=== PATIENT | female | born 2000 | race Caucasian/White ===

== ENCOUNTER 2020-12-08 23:26 | Emergency (ER) | payer BC ==
[2020-12-08 23:34] VITALS: BP 139/93; PULSE 104; TEMP 99.4; BMI 19.8
[2020-12-08] MEDS ORDERED: DEXAMETHASONE SOD PHOSPHATE 10 MG/1 ML VIAL IVPUSH ONE (23:40)
[2020-12-08] MEDS ORDERED: DEXAMETHASONE SOD PHOSPHATE 10 MG/1 ML VIAL ONE (23:45)
== END 2020-12-09 01:59 | disposition home or self-care (01) ==
LOC: FER 23:26
PROC: 3E033NZ Introduction of Analgesics, Hypnotics, Sedatives into Peripheral Vein, Percutaneous Approach (ICD-10-PCS; principal; 2020-12-08)
PROC: 3E033GC Introduction of Other Therapeutic Substance into Peripheral Vein, Percutaneous Approach (ICD-10-PCS; 2020-12-08)
DX: T78.40XA Allergy, unspecified, initial encounter (principal)
CPT/HCPCS: 99283-25; J1100

== ENCOUNTER 2021-02-20 19:31 | Emergency (ER) | payer BC ==
[2021-02-20] MEDS ORDERED: SODIUM CHLORIDE 1,000 ML IV ONE (19:35)
[2021-02-20] MEDS ORDERED: ONDANSETRON 4 MG/2 ML VIAL IVPB ONE (19:35)
[2021-02-20 19:46] VITALS: BP 110/87; PULSE 76; TEMP 98.1; BMI 19.4
[2021-02-20] MEDS ORDERED: ONDANSETRON 4 MG/2 ML VIAL ONE (19:47)
[2021-02-20 20:12] LABS: ALBUMIN 5.1 g/dl (3.4-5.0); BILIRUBIN,TOTAL 0.6 mg/dl (0.2-1); CREATININE 0.6 mg/dl (0.55-1.3); TOT PROT 8.3 g/dl (6.4-8.2)
[2021-02-20 21:10] LABS: HEMATOCRIT 39.5 % (32.4-45.2); HEMOGLOBIN 13.4 GM/dL (10.7-15.3); MEAN CELL VOLUME 85.1 fl (80-96); MEAN PLT VOLUME 7.8 fl (7.5-11.1); PLATELET COUNT 345 10^3/uL (134-434); RBC 4.64 M/mm3 (3.60-5.2); RDW 13.2 % (11.6-15.6); WHITE BLOOD COUNT 21.2 K/mm3 (4.0-10.0)
[2021-02-20 22:14] LABS: ANISOCYTOSIS 2+; MACROCYTOSIS 0; PLATELET ESTIMATE DECREASED
[2021-02-20 23:18] LABS: BASO % 0.1 % (0-2.0); HEMATOCRIT 34.2 % (32.4-45.2); HEMOGLOBIN 11.6 GM/dL (10.7-15.3); LYMPH % 8.5 % (8-40); MCH 29.2 pg (25.7-33.7); MEAN CELL VOLUME 85.9 fl (80-96); MEAN PLT VOLUME 7.6 fl (7.5-11.1); MONO % 2.5 % (3.8-10.2); NEUT % 88.9 % (42.8-82.8); PLATELET COUNT 276 10^3/uL (134-434); RBC 3.98 M/mm3 (3.60-5.2); WHITE BLOOD COUNT 18.5 K/mm3 (4.0-10.0)
== END 2021-02-20 23:29 | disposition home or self-care (01) ==
LOC: FER 19:31
PROC: 3E033GC Introduction of Other Therapeutic Substance into Peripheral Vein, Percutaneous Approach (ICD-10-PCS; principal; 2021-02-20)
DX: R11.2 Nausea with vomiting, unspecified (principal)
CPT/HCPCS: 36415; 80053; 85025; 99284-25

== ENCOUNTER 2021-04-12 06:41 | Emergency (ER) | payer BC ==
[2021-04-12 06:53] VITALS: TEMP 99.6; BMI 18.8
[2021-04-12] MEDS ORDERED: SODIUM CHLORIDE 0.9% 500 ML INFUS.BAG IV ONE (07:15)
[2021-04-12] MEDS ORDERED: ALPRAZolam 1 MG TABLET PO PRN (07:15)
[2021-04-12] MEDS ORDERED: ALPRAZolam 0.25 MG TABLET ONE (07:38)
[2021-04-12 08:37] LABS: BILIRUBIN,TOTAL 0.5 mg/dl (0.2-1); CALCIUM 8.7 mg/dl (8.5-10); CREATININE 0.7 mg/dl (0.55-1.3); MAGNESIUM 1.8 mg/dL (1.8-2.4); PHOSPHOROUS 3.9 mg/dl (2.5-4.9); TOT PROT 6.9 g/dl (6.4-8.2)
[2021-04-12] MEDS ORDERED: POTASSIUM CHLORIDE TABS 20 MEQ TABLET.ER (FP) PO ONE ×2 (08:46→08:57)
[2021-04-12 09:45] VITALS: BP 110/78; PULSE 83
[2021-04-12 10:26] LABS: BASO % 0.5 % (0-2.0); EOS % 4.6 % (0-4.5); HEMATOCRIT 37.1 % (32.4-45.2); HEMOGLOBIN 12.4 GM/dL (10.7-15.3); LYMPH % 22.3 % (8-40); MCH 28.9 pg (25.7-33.7); MCHC 33.4 g/dl (32.0-36.0); MEAN CELL VOLUME 86.3 fl (80-96); MEAN PLT VOLUME 8.1 fl (7.5-11.1); NEUT % 65.6 % (42.8-82.8); PLATELET COUNT 299 10^3/uL (134-434); RDW 13.8 % (11.6-15.6); WHITE BLOOD COUNT 10.9 K/mm3 (4.0-10.0)
== END 2021-04-12 10:23 | disposition home or self-care (01) ==
LOC: FER 06:41
DX: F41.9 Anxiety disorder, unspecified (principal)
CPT/HCPCS: 36415; 80053; 83735; 84100; 84443; 85025; 93005; 99284-25

== ENCOUNTER 2022-11-22 01:33 | Emergency (ER) | payer BC ==
[2022-11-22] MEDS ORDERED: FAMOTIDINE 20 MG/50 ML IVPB 20 MG/50 ML MG IVPB ONE ×2 (01:38→01:46)
[2022-11-22] MEDS ORDERED: methylPREDNISolone NA SUCC 125 MG/2 ML VIAL IVPB ONE (01:38)
[2022-11-22 01:39] VITALS: TEMP 97.8; BMI 21.3
[2022-11-22] MEDS ORDERED: methylPREDNISolone NA SUCC 125 MG/2 ML VIAL ONE (01:46)
[2022-11-22 05:22] VITALS: BP 114/74; PULSE 94; RESP 16
== END 2022-11-22 05:35 | disposition home or self-care (01) ==
LOC: FER 01:33
PROC: 3E033GC Introduction of Other Therapeutic Substance into Peripheral Vein, Percutaneous Approach (ICD-10-PCS; principal; 2022-11-22)
PROC: 3E033GC Introduction of Other Therapeutic Substance into Peripheral Vein, Percutaneous Approach (ICD-10-PCS; 2022-11-22)
PROC: 3E033GC Introduction of Other Therapeutic Substance into Peripheral Vein, Percutaneous Approach (ICD-10-PCS; 2022-11-22)
DX: L29.9 Pruritus, unspecified (principal); L50.0 Allergic urticaria; R09.89 Other specified symptoms and signs involving the circulatory and respiratory systems; T78.40XA Allergy, unspecified, initial encounter
CPT/HCPCS: 99284-25

== ENCOUNTER 2023-01-15 22:14 | Emergency (ER) | payer BC ==
[2023-01-15] MEDS ORDERED: ONDANSETRON 4 MG/2 ML VIAL IVPB ONE (22:23)
[2023-01-15] MEDS ORDERED: SODIUM CHLORIDE 1,000 ML IV ONE (22:23)
[2023-01-15 22:26] VITALS: BP 114/74; PULSE 85; RESP 16; TEMP 98; BMI 20.2
[2023-01-15] MEDS ORDERED: FAMOTIDINE 20 MG/50 ML IVPB 20 MG/50 ML MG IVPB ONE ×2 (22:27)
[2023-01-15] MEDS ORDERED: ONDANSETRON 4 MG/2 ML VIAL ONE (22:27)
[2023-01-15 22:55] LABS: HEMATOCRIT 41.8 % (32.4-45.2); MCH 29.2 pg (25.7-33.7); MCHC 33.4 g/dl (32.0-36.0); MEAN CELL VOLUME 87.4 fl (80-96); MEAN PLT VOLUME 8.6 fl (7.5-11.1); PLATELET COUNT 271.7 10^3/uL (134-434); RBC 4.78 10^6/uL (3.60-5.2); RDW 14.1 % (11.6-15.6); WHITE BLOOD COUNT 21.1 10^3/uL (4.0-10.8)
[2023-01-15 23:30] LABS: HCG,QUALITATIVE URINE Negative
[2023-01-15 23:45] LABS: POTASSIUM 3.9 mmol/L (3.5-5.1)
[2023-01-15 23:47] LABS: EPITHELIAL CELLS 0-5 /hpf
[2023-01-15 23:47] LABS: CALCIUM 9.7 mg/dL (8.5-10.1)
[2023-01-15 23:48] LABS: ALBUMIN 4.5 g/dl (3.4-5.0); BLOOD UREA NITROGEN 17.2 mg/dL (7-18); MAGNESIUM 1.8 mg/dL (1.8-2.4)
[2023-01-15 23:51] LABS: CREATININE 0.8 mg/dL (0.55-1.3); PHOSPHOROUS 3.8 mg/dL (2.5-4.9)
[2023-01-15 23:52] LABS: BILIRUBIN,TOTAL 0.7 mg/dL (0.2-1); TOT PROT 7.8 g/dl (6.4-8.2)
== END 2023-01-16 00:26 | disposition home or self-care (01) ==
LOC: FER 22:14
PROC: 3E033GC Introduction of Other Therapeutic Substance into Peripheral Vein, Percutaneous Approach (ICD-10-PCS; principal; 2023-01-15)
PROC: 3E033GC Introduction of Other Therapeutic Substance into Peripheral Vein, Percutaneous Approach (ICD-10-PCS; 2023-01-15)
DX: R11.2 Nausea with vomiting, unspecified (principal)
CPT/HCPCS: 36415; 71045-TC-FY; 80053; 81003; 81015; 83690; 83735; 84100; 84703; 85027; 99284-25

== ENCOUNTER 2023-03-06 02:21 | Emergency (ER) | payer BC ==
[2023-03-06 02:31] VITALS: TEMP 98.4; BMI 19.4
[2023-03-06] MEDS ORDERED: predniSONE 20 MG TABLET (UD) PO ONE (02:36)
[2023-03-06] MEDS ORDERED: diphenhydrAMINE HCL 50 MG CAPSULE PO ONE (02:36)
[2023-03-06] MEDS ORDERED: diphenhydrAMINE HCL 50 MG CAPSULE ONE (02:37)
[2023-03-06] MEDS ORDERED: ALBUTEROL SO4 2.5/IPRATROPIUM 0.5 INH SOL 3 ML VIAL.NEB. NEB STA (02:37)
[2023-03-06] MEDS ORDERED: predniSONE 20 MG TABLET (UD) ONE (02:37)
[2023-03-06] MEDS ORDERED: ALBUTEROL SO4 2.5/IPRATROPIUM 0.5 INH SOL 3 ML VIAL.NEB. NEB ONE (02:38)
[2023-03-06 03:13] VITALS: BP 104/69; PULSE 88; RESP 16
== END 2023-03-06 03:28 | disposition home or self-care (01) ==
LOC: FER 02:21
PROC: 3E0F7GC Introduction of Other Therapeutic Substance into Respiratory Tract, Via Natural or Artificial Opening (ICD-10-PCS; principal; 2023-03-06)
DX: L50.0 Allergic urticaria (principal); L29.9 Pruritus, unspecified; R06.02 Shortness of breath; T78.40XA Allergy, unspecified, initial encounter
CPT/HCPCS: 99283-25

== ENCOUNTER 2024-01-02 17:49 | Emergency (ER) | payer BC ==
[2024-01-02 17:53] VITALS: TEMP 99.3; BMI 19.7
[2024-01-02] MEDS ORDERED: ALBUTEROL SO4 2.5/IPRATROPIUM 0.5 INH SOL 3 ML VIAL.NEB. NEB ONE (18:00)
[2024-01-02] MEDS: ALBUTEROL SO4 2.5/IPRATROPIUM 0.5 INH SOL 3 ML VIAL.NEB. NEB ONE (18:01)
[2024-01-02] MEDS: methylPREDNISolone NA SUCC 125 MG/2 ML VIAL IVPUSH ONE (18:14)
[2024-01-02] MEDS: FAMOTIDINE 20 MG/50 ML IVPB 20 MG/50 ML MG IVPB ONE (18:14)
[2024-01-02] MEDS ORDERED: ACETAMINOPHEN 325 MG TABLET (FP) ONE (18:22)
[2024-01-02] MEDS: ACETAMINOPHEN 325 MG TABLET (FP) PO ONE (18:27)
[2024-01-02 18:47] VITALS: BP 110/74
[2024-01-02 19:15] VITALS: PULSE 98; RESP 18
== END 2024-01-02 19:17 | disposition home or self-care (01) ==
LOC: FER 17:49
PROC: 3E033GC Introduction of Other Therapeutic Substance into Peripheral Vein, Percutaneous Approach (ICD-10-PCS; principal; 2024-01-02)
PROC: 3E033GC Introduction of Other Therapeutic Substance into Peripheral Vein, Percutaneous Approach (ICD-10-PCS; 2024-01-02)
PROC: 3E033GC Introduction of Other Therapeutic Substance into Peripheral Vein, Percutaneous Approach (ICD-10-PCS; 2024-01-02)
PROC: 3E0F7GC Introduction of Other Therapeutic Substance into Respiratory Tract, Via Natural or Artificial Opening (ICD-10-PCS; 2024-01-02)
DX: T78.40XA Allergy, unspecified, initial encounter (principal); R06.02 Shortness of breath; R06.2 Wheezing; R21 Rash and other nonspecific skin eruption; L29.9 Pruritus, unspecified; R09.81 Nasal congestion
CPT/HCPCS: 99284-25

== ENCOUNTER 2024-02-23 15:39 | Emergency (ER) | payer BC ==
[2024-02-23] MEDS ORDERED: methylPREDNISolone NA SUCC 125 MG/2 ML VIAL ONE (15:42)
[2024-02-23] MEDS ORDERED: FAMOTIDINE 20 MG/50 ML IVPB 20 MG/50 ML MG IVPB ONE (15:42)
[2024-02-23 15:53] VITALS: TEMP 98.8; BMI 19.1
[2024-02-23] MEDS: methylPREDNISolone NA SUCC 125 MG/2 ML VIAL IVPUSH ONE (15:55)
[2024-02-23] MEDS: FAMOTIDINE 20 MG/50 ML IVPB 20 MG/50 ML MG IVPB ONE (15:59)
[2024-02-23] MEDS ORDERED: EPINEPHrine/PF 1 MG/1 ML (1:1,000) AMPULE ONE (16:23)
[2024-02-23 16:25] VITALS: BP 123/85; PULSE 76; RESP 16
== END 2024-02-23 17:32 | disposition home or self-care (01) ==
LOC: FER 15:39
PROC: 3E033GC Introduction of Other Therapeutic Substance into Peripheral Vein, Percutaneous Approach (ICD-10-PCS; principal; 2024-02-23)
PROC: 3E033GC Introduction of Other Therapeutic Substance into Peripheral Vein, Percutaneous Approach (ICD-10-PCS; 2024-02-23)
PROC: 3E033GC Introduction of Other Therapeutic Substance into Peripheral Vein, Percutaneous Approach (ICD-10-PCS; 2024-02-23)
DX: R22.0 Localized swelling, mass and lump, head (principal); T78.1XXA Other adverse food reactions, not elsewhere classified, initial encounter
CPT/HCPCS: 99284-25